=== PATIENT | male | born 1930 | race Caucasian/White ===

== ENCOUNTER 2017-07-15 14:01 | Observation (INO) | payer MEDICARE, BC ==
[2017-07-15] MEDS ORDERED: Sodium Chloride 0.9% 1,000 ML IV SCH (16:30)
[2017-07-15] MEDS ORDERED: Bisacodyl 5 MG Tab PO ONE ×2 (17:00→20:00)
[2017-07-15] MEDS ORDERED: Polyethylene Glycol 3350 Powder 238 GM Bot PO ONE (17:00)
[2017-07-15] MEDS: DIGOXIN 125 MCG PO SCH (17:23)
[2017-07-15] MEDS: Nystatin Topical Powder 15 GM Bottle TOP SCH ×2 (19:20→21:12)
[2017-07-15] MEDS ORDERED: Metoprolol Tartrate 25 MG Tab (PTOM) PO SCH (21:00)
[2017-07-15] MEDS ORDERED: Lovastatin 20 MG Tab (PTOM) PO SCH (21:00)
[2017-07-15] MEDS ORDERED: Tamsulosin 0.4 MG Cap.ER (PTOM) PO SCH (21:00)
[2017-07-16] MEDS: Nystatin Topical Powder 15 GM Bottle TOP SCH ×2 (07:19→09:49)
[2017-07-16 09:47] VITALS: BP 130/65
[2017-07-16] MEDS ORDERED: Ranitidine 150 MG Tab (PTOM) PO SCH (11:00)
--- NOTE | 2017-07-16 11:50 | DISCH ---
REASON FOR HOSPITALIZATION: Colon prep and evaluation of GI bleeding. SUMMARY OF HOSPITAL COURSE: A pleasant 87-year-old male, who requiring the colonoscopy due to GI bleeding. He underwent an uneventful bowel prep. The patient underwent his colonoscopy, he felt difficulty. Prior to discharge, he had no pain. No nausea, vomiting, shortness of breath, or chest pain. He is tolerating diet, no evidence of complications. FOLLOWUP: Follow up with Randy Flanagan CNP, at [facility].
[2017-07-16] MEDS ORDERED: Aspirin 81 MG Tab.EC PO SCH (12:00)
[2017-07-16] MEDS ORDERED: Cholecalciferol (Vitamin D3) 1,000 Unit Tab PO SCH (12:00)
[2017-07-16] MEDS: DIGOXIN 125 MCG PO SCH (12:55)
[2017-07-16] MEDS ORDERED: WARFARIN 2 MG PO SCH (13:00)
--- NOTE | 2017-07-16 14:56 | OR ---
DATE OF PROCEDURE: 07/16/2017 PROCEDURE: 1. EGD. 2. Colonoscopy. FINDINGS: 1. No evidence of old or new blood. 2. Mild plaque-like lesion noted in the duodenum (biopsied using cold biopsy forceps). 3. Diverticulosis, mild, noted in sigmoid colon. PREOPERATIVE DIAGNOSES: 1. Anemia. 2. Gastrointestinal bleed. 3. Dysphagia. POSTOPERATIVE DIAGNOSES: 1. Anemia. 2. Gastrointestinal bleed. 3. Dysphagia. RISKS: Risks, benefits, alternatives, limitations including but not limited to infection, bleeding, and perforation were explained to the patient and family and they wished to proceed. PROCEDURE IN DETAIL: The patient was placed in left lateral decubitus position. The EGD scope was introduced and advanced atraumatically to the 2nd part of the duodenum. Within the duodenum itself, there was a white plaque-like material noted. This was biopsied using cold biopsy forceps. The patient had one small spot of gastritis which appeared to be healing. No abnormalities on retroflex. The GE junction showed no significant abnormalities. In the esophagus, there was also a plaque-like lesion, which was biopsied with cold biopsy forceps. No other abnormalities were noted in the esophagus. Colonoscopy was then performed next. Digital rectal exam was performed without abnormality. Scope was introduced and advanced atraumatically to the ileocecal valve. The scope was brought back to the ascending, transverse, descending colon, and retroflexed. There was no old or new blood. The patient had diverticulosis which is described as mild-to- moderate. This could be the etiology of the bleeding. No other abnormalities are noted in the colon. The patient tolerated the procedure well. Devonte Clemens MD /[id number]
== END 2017-07-16 14:29 | disposition home or self-care (01) ==
LOC: JP.2SS 14:01
PROVIDERS: ADMIT Surgery; ATTEND Surgery
DX: K57.30 Diverticulosis of large intestine without perforation or abscess without bleeding (principal); N18.3 Chronic kidney disease, stage 3 (moderate); J44.9 Chronic obstructive pulmonary disease, unspecified; I21.3 ST elevation (STEMI) myocardial infarction of unspecified site; N40.0 Benign prostatic hyperplasia without lower urinary tract symptoms; I25.10 Atherosclerotic heart disease of native coronary artery without angina pectoris; I63.9 Cerebral infarction, unspecified; Z98.890 Other specified postprocedural states; Z95.1 Presence of aortocoronary bypass graft; Z79.82 Long term (current) use of aspirin; Z79.899 Other long term (current) drug therapy; Z72.0 Tobacco use
CPT/HCPCS: 36415; 43239; 45378; 80048; 85025; 85610; 93005; 93010; A9270; G0378; G0379; 88305; J2704

== ENCOUNTER 2017-08-19 00:54 | Emergency (ER) | payer MEDICARE, BC ==
[2017-08-19] MEDS ORDERED: Sodium Chloride 0.9% 10 ML Syringe FLUSH PRN (00:59)
[2017-08-19] MEDS ORDERED: Clopidogrel 75 MG Tab PO ONE (00:59)
[2017-08-19] MEDS ORDERED: Morphine 2 MG/ML Syringe IVPUSH PRN (00:59)
[2017-08-19] MEDS ORDERED: Heparin Sodium 5,000 Units/ML Vial IVPUSH ONE (00:59)
[2017-08-19] MEDS ORDERED: Heparin Sodium/D5W 25,000 UNITS/500 ML BAG IV SCH (01:00)
[2017-08-19] MEDS ORDERED: Nitroglycerin/D5W 25 MG/250 ML BOTTLE ONE (01:00)
[2017-08-19] MEDS ORDERED: Morphine 2 MG/ML Syringe ONE (01:00)
[2017-08-19] MEDS ORDERED: Sodium Chloride 0.9% 1,000 ML IV SCH (01:00)
[2017-08-19] MEDS ORDERED: Heparin Sodium/D5W 500 ML ONE (01:00)
[2017-08-19] MEDS ORDERED: Ondansetron 4 MG/2 ML SDV IVPUSH ONE (01:13)
[2017-08-19] MEDS ORDERED: Ondansetron 4 MG/2 ML SDV ONE (01:14)
[2017-08-19] MEDS ORDERED: Nitroglycerin/D5W 25 MG/250 ML BOTTLE IV SCH (01:15)
--- NOTE | 2017-08-19 01:28 | EDM.PDOC ---
ED HPI GENERAL MEDICAL PROBLEM - General Stated Complaint: MED[facility] Time Seen by Provider: 08/19/17 01:21 Source of Information: Reports: Patient, EMS History Limitations: Reports: No Limitations - History of Present Illness INITIAL COMMENTS - FREE TEXT/NARRATIVE: 87-year-old gentleman who was awoken from sleep with chest pain EMS services were called on arrival by EMS services initial EKG was done which showed ST elevations 12V3,4,5 and 6. STEMI protocol was initiated in the field air care was initiated in the field, because they had delay with air care of 30 minutes out they elected to stop by the emergency department for further stabilization and medications. On arrival patient stated he was having chest pain and nauseated rated his pain a 10 out of 10 - Related Data Allergies Allergy/AdvReac Type Severity Reaction Status Date / Time clindamycin Allergy Rash Verified 03/03/16 08:39 levofloxacin [From Levaquin] Allergy Rash Verified 03/03/16 08:39 lorazepam [From Ativan] Allergy Cannot Verified 03/03/16 08:39 Remember Home Meds: Home Meds Cholecalciferol (Vitamin D3) [Vitamin D3] 1,000 unit PO DAILY 03/27/14 [History] Lovastatin 20 mg PO BEDTIME 03/27/14 [History] Metoprolol Tartrate [Lopressor] 25 mg PO BID 03/27/14 [History] Warfarin Sodium 2 mg PO ASDIRECTED 03/27/14 [History] Cyanocobalamin (Vitamin B12) [Vitamin B12] 1,000 mcg INJECT Q30D 09/18/14 [ History] Digoxin 125 mcg PO DAILY #30 tablet 09/23/14 [Rx] Aspirin [Halfprin] 81 mg PO DAILY 07/15/17 [History] Bacitracin [Bacitracin Oint] 1 applic TOP DAILY PRN 07/15/17 [History] Ranitidine [Zantac] 1 tab PO DAILY 07/15/17 [History] Tamsulosin [Flomax] 0.8 mg PO QPM 07/15/17 [History] Past Medical History HEENT History: Reports: Allergic Rhinitis, Cataract, Hard of Hearing, Impaired Vision Cardiovascular History: Reports: Afib, CAD, High Cholesterol, Hypertension, [place] Respiratory History: Reports: COPD Gastrointestinal History: Reports: GERD, Other (See Below) Other Gastrointestinal History: esophageal stricture Musculoskeletal History: Reports: Osteoarthritis, Osteoporosis Neurological History: Reports: CVA, TIA Psychiatric History: Reports: Depression Endocrine/Metabolic History: Reports: Osteoporosis Hematologic History: Reports: Anemia, Blood Transfusion(s) Oncologic (Cancer) History: Reports: Colon, Malignant Melanoma Dermatologic History: Reports: Other (See Below) Other Dermatologic History: rash to antibotic - Infectious Disease History Infectious Disease History: Reports: Other (See Below) Other Infectious Disease History: unknown - Past Surgical History HEENT Surgical History: Reports: Other (See Below) Cardiovascular Surgical History: Reports: Coronary Artery Bypass, Other (See Below) Respiratory Surgical History: Reports: None GI Surgical History: Reports: Colonoscopy, EGD, Esophageal Dilatation Other GI Surgeries/Procedures: history of red bloody stools Male Surgical History: Reports: Circumcision Other Male Surgeries/Procedures: frequent urination Neurological Surgical History: Reports: None Musculoskeletal Surgical History: Reports: Other (See Below) Oncologic Surgical History: Reports: Other (See Below) Other Oncologic Surgeries/Procedures: denies history of cancer Social & Family History - Tobacco Use Smoking Status *Q: Current Every Day Smoker Years of Tobacco use: 70 Packs/Tins Daily: 1 Used Tobacco, but Quit: No Month Tobacco Last Used: 12 Second Hand Smoke Exposure: No - Caffeine Use Caffeine Use: Reports: None - Alcohol Use Days Per Week of Alcohol Use: 1 Number of Drinks Per Day: 2 Total Drinks Per Week: 2 - Recreational Drug Use Recreational Drug Use: No ED ROS GENERAL - Review of Systems Review Of Systems: See Below Respiratory: Reports: Shortness of Breath Cardiovascular: Reports: Chest Pain GI/Abdominal: Reports: Nausea ED EXAM, GENERAL - Physical Exam Exam: See Below Exam Limited By: No Limitations General Appearance: Alert, Moderate Distress Respiratory/Chest: No Respiratory Distress, Lungs Clear, Normal Breath Sounds, No Accessory Muscle Use Cardiovascular: Regular Rate, Rhythm, No Murmur Course - Orders/Labs/Meds Orders: Active Orders 24 hr Category Date Time Status Peripheral IV Care [RC] . DIRECTED Care 08/19/17 01:00 Ordered Heparin Sodium/D5W [Heparin 25,000 Units in D5W 500 ML] Med 08/19/17 01:00 Ordered 25,000 units in 500 ml IV TITRATE Morphine Med 08/19/17 00:59 Ordered 2 mg IVPUSH Q10M PRN Nitroglycerin 25 MG in D5W @ 10 MCG/MIN(250ml) Premix Med 08/19/17 01:15 Ordered Nitroglycerin/D5W [Nitroglycerin 25 MG/D5W 250 ML] 25 mg in 250 ml IV TITRATE Sodium Chloride 0.9% @ 125 MLS/HR (1000ml) Med 08/19/17 01:00 Ordered Sodium Chloride 0.9% [Normal Saline] 1,000 ml IV ASDIRECTED Sodium Chloride 0.9% [Saline Flush] Med 08/19/17 00:59 Ordered 10 ml FLUSH ASDIRECTED PRN Peripheral IV Insertion Adult [OM.PC] Stat Oth 08/19/17 00:59 Ordered Medication Orders Heparin Sodium/Dextrose (Heparin 25,000 Units In D5w 500 Ml) 25,000 units in 500 mls @ 0 mls/hr IV TITRATE [place]; 12 UNITS/KG/HR PRN Reason: Protocol Sodium Chloride (Normal Saline) 1,000 mls @ 125 mls/hr IV ASDIRECTED [place] Nitroglycerin/Dextrose (Nitroglycerin 25 Mg/D5w 250 Ml) 25 mg in 250 mls @ 6 mls/hr IV TITRATE [place]; 10 MCG/MIN PRN Reason: Protocol Morphine Sulfate (Morphine) 2 mg IVPUSH Q10M PRN PRN Reason: Chest Pain Stop: 08/20/17 01:00 Sodium Chloride (Saline Flush) 10 ml FLUSH ASDIRECTED PRN PRN Reason: Keep Vein Open Meds: Medications Generic Name Dose Route Start Last Admin Trade Name Freq PRN Reason Stop Dose Admin Heparin Sodium/Dextrose 25,000 units in 500 mls @ 0 mls/hr 08/19/17 01:00 Heparin 25,000 Units In D5w 500 Ml IV TITRATE [place] Protocol 12 UNITS/KG/HR Sodium Chloride 1,000 mls @ 125 mls/hr 08/19/17 01:00 Normal Saline IV ASDIRECTED [place] Nitroglycerin/Dextrose 25 mg in 250 mls @ 6 mls/hr 08/19/17 01:15 Nitroglycerin 25 Mg/D5w 250 Ml IV TITRATE [place] Protocol 10 MCG/MIN Morphine Sulfate 2 mg 08/19/17 00:59 Morphine IVPUSH 08/20/17 01:00 Q10M PRN Chest Pain Sodium Chloride 10 ml 08/19/17 00:59 Saline Flush FLUSH ASDIRECTED PRN Keep Vein Open Discontinued Medications Generic Name Dose Route Start Last Admin Trade Name Rhea PRN Reason Stop Dose Admin Clopidogrel Bisulfate 600 mg 08/19/17 00:59 Plavix PO 08/19/17 01:00 ONETIME ONE Heparin Sodium (Porcine) 0 units 08/19/17 00:59 Heparin Sodium IVPUSH 08/19/17 01:00 .BOLUS ONE Nitroglycerin/Dextrose Confirm 08/19/17 01:00 Nitroglycerin 25 Mg/D5w 250 Ml Administered 08/19/17 01:01 Dose 25 mg in 250 mls @ as directed .ROUTE .STK-MED ONE Heparin Sodium/Dextrose Confirm 08/19/17 01:00 Heparin 25,000 Units In D5w 500 Ml Administered 08/19/17 01:01 Dose 500 mls @ as directed .ROUTE .STK-MED ONE Morphine Sulfate Confirm 08/19/17 01:00 Morphine Administered 08/19/17 01:01 Dose 2 mg .ROUTE .STK-MED ONE Ondansetron HCl 4 mg 08/19/17 01:13 Zofran IVPUSH 08/19/17 01:14 ONETIME ONE Ondansetron HCl Confirm 08/19/17 01:14 Zofran Administered 08/19/17 01:15 Dose 4 mg .ROUTE .STK-MED ONE Departure - Departure Time of Disposition: 01:28 Disposition: DC/Tfer to Acute Hospital 02 Preliminary Cause of *Q: Cardiac Arrest Reason for Transfer *Q: Primary PCI Indicated Condition: Fair Clinical Impression: ST elevation myocardial infarction (STEMI) Qualifiers: Involved coronary artery: unspecified coronary artery Qualified Code(s): I21.3 - ST elevation (STEMI) myocardial infarction of unspecified site Referrals: PCP,None [Primary Care Provider] - - My Orders Last 24 Hours: My Active Orders 08/19/17 00:59 Morphine 2 mg IVPUSH Q10M PRN Sodium Chloride 0.9% [Saline Flush] 10 ml FLUSH ASDIRECTED PRN Peripheral IV Insertion Adult [OM.PC] Stat 08/19/17 01:00 Peripheral IV Care [RC] . DIRECTED Heparin Sodium/D5W [Heparin 25,000 Units in D5W 500 ML] 25,000 units in 500 ml IV TITRATE Sodium Chloride 0.9% @ 125 MLS/HR (1000ml) Sodium Chloride 0.9% [Normal Saline] 1,000 ml IV ASDIRECTED 08/19/17 01:15 Nitroglycerin 25 MG in D5W @ 10 MCG/MIN(250ml) Premix Nitroglycerin/D5W [ Nitroglycerin 25 MG/D5W 250 ML] 25 mg in 250 ml IV TITRATE - Assessment/Plan Last 24 Hours: My Active Orders 08/19/17 00:59 Morphine 2 mg IVPUSH Q10M PRN Sodium Chloride 0.9% [Saline Flush] 10 ml FLUSH ASDIRECTED PRN Peripheral IV Insertion Adult [OM.PC] Stat 08/19/17 01:00 Peripheral IV Care [RC] . DIRECTED Heparin Sodium/D5W [Heparin 25,000 Units in D5W 500 ML] 25,000 units in 500 ml IV TITRATE Sodium Chloride 0.9% @ 125 MLS/HR (1000ml) Sodium Chloride 0.9% [Normal Saline] 1,000 ml IV ASDIRECTED 08/19/17 01:15 Nitroglycerin 25 MG in D5W @ 10 MCG/MIN(250ml) Premix Nitroglycerin/D5W [ Nitroglycerin 25 MG/D5W 250 ML] 25 mg in 250 ml IV TITRATE Plan: Assessment Acuity = acute Site and laterality = ST elevation myocardial infarction complicated patient with known history coronary artery disease, hypertension and dyslipidemia as well as history of cerebrovascular accident known history of atrial fibrillation on anticoagulation Etiology = probable coronary artery occlusion Manifestations = pain Location of injury = Home Lab values = EKG performed in route by EMS crew shows ST elevations in one to V3 V4 V5 and V6 Plan Called updated essential health plan is life [facility] air care will take him directly to the emergency department for further evaluation and treatment while in the ED he received 600 mg of Plavix, 4000 unit bolus of heparin initiated a heparin drip initiated and nitro drip he received 2 mg morphine he received 4 mg Zofran his pain had improved while he is in the emergency department This note was dictated using [employer] voice recognition software please call with any questions.
[2017-08-20 09:03] VITALS: BP 118/67
== END 2017-08-19 01:21 ==
LOC: JP.ED 00:54
DX: I21.3 ST elevation (STEMI) myocardial infarction of unspecified site (principal); I10 Essential (primary) hypertension; F17.210 Nicotine dependence, cigarettes, uncomplicated; Z88.1 Allergy status to other antibiotic agents; Z79.899 Other long term (current) drug therapy
CPT/HCPCS: 96374; 96375; 99285; A9270; J1644; J2270; J2405; J7040; J7050